=== PATIENT | female | born 1975 | race Caucasian/White ===

== ENCOUNTER 2017-10-10 15:30 | Emergency (ER) | payer OTHER, SELFPAY ==
[2017-10-10] MEDS ORDERED: TETANUS & DIPHTHERIA TOX,ADULT 0.5 ML VIAL ONE (16:22)
[2017-10-10] MEDS ORDERED: IBUPROFEN 200 MG TAB PO ONE (16:22)
[2017-10-10] MEDS ORDERED: IBUPROFEN 400 MG TAB ONE (16:22)
--- NOTE | 2017-10-10 16:46 | RAD REPORT ---
EXAM DESCRIPTION: RAD - Ankle Left 3 View - 10/10/2017 4:27 pm COMPARISON: None. FINDINGS: No fracture, dislocation or periosteal reaction. Joint effusions suspected along the tibio talar joint space. No joint space narrowing. No soft tissue abnormality. IMPRESSION: Joint effusion suspected but no acute bone process identifiable. Soft tissues are mildly prominent.
--- NOTE | 2017-10-10 16:50 | ER ---
Nurse's Notes [facility] Name: Herbie Arroyo Age: 42 yrs Sex: Female : 1975 Arrival Date: 10/10/2017 Time: 15:33 Bed 26 Private MD: Diagnosis: Sprain of ankle Presentation: 10/10 15:44 Presenting complaint: Patient states: L ankle pain after tripping yesterday. Pt was ss ambulatory with slight limp to triage. Transition of care: patient was not received from another setting of care. Onset of symptoms was October 09, 2017. Care prior to arrival: None. 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 tw2 Historical: - Allergies: 15:46 Levaquin; ss - Home Meds: 15:46 None [Active]; ss - PMHx: 15:46 ocd; Anxiety; ss - PSHx: 15:46 Tubal ligation; Cholecystectomy; ss - Immunization history:: Adult Immunizations unknown. - Social history:: Smoking status: Patient uses tobacco products, smokes one-half pack cigarettes per day. Screenin:52 Abuse screen: Denies threats or abuse. Nutritional screening: No deficits noted. tw2 Tuberculosis screening: No symptoms or risk factors identified. Fall Risk None identified. Assessment: 15:51 General: Appears in no apparent distress. slender, well groomed, Behavior is calm, tw2 cooperative, appropriate for age. Pain: Complains of pain in lateral side of left heel and left lateral malleolus. Neuro: Level of Consciousness is awake, alert, obeys commands, Oriented to person, place, time, situation. Cardiovascular: Denies chest pain, shortness of breath, Capillary refill < 3 seconds Patient's skin is warm and dry. Respiratory: Airway is patent Respiratory effort is even, unlabored, Respiratory pattern is regular, symmetrical. GI: No signs and/or symptoms were reported involving the gastrointestinal system. Abdomen is flat. : No signs and/or symptoms were reported regarding the genitourinary system. EENT: No signs and/or symptoms were reported regarding the EENT system. Derm: No signs and/or symptoms reported regarding the dermatologic system. Musculoskeletal: Circulation, motion, and sensation intact. Range of motion: intact in all extremities, Reports pain in lateral side of left heel and left lateral malleolus. 16:58 Reassessment: Patient appears in no apparent distress at this time. No changes from tw2 previously documented assessment. Patient and/or family updated on plan of care and expected duration. Pain level reassessed. Patient is alert, oriented x 3, equal unlabored respirations, skin warm/dry/pink. Vital Signs: 15:46 BP 123 / 98; Pulse 82; Resp 15; Temp 98.7(TE); Pulse Ox 98% on R/A; Weight 55.34 kg; ss Height 5 ft. 7 in. (170.18 cm); Pain 6/10; 15:46 Body Mass Index 19.11 (55.34 kg, 170.18 cm) ED Course: 15:33 Patient arrived in ED. as 15:40 Tatiana Coffman NP is PHCP. rh1 15:40 Arie Beebe MD is Attending Physician. rh1 15:45 Triage completed. ss 15:46 Arm band placed on right wrist. ss 15:50 Trish Zhang, MICHAEL is Primary Nurse. tw2 15:52 Bed in low position. Call light in reach. Pulse ox on. NIBP on. tw2 15:53 No provider procedures requiring assistance completed. tw2 16:26 X-ray completed. Portable x-ray completed in exam room. Patient tolerated procedure ag1 well. 16:49 David Wallace MD is Referral Physician. rh1 16:58 Patient did not have IV access during this emergency room visit. 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 Exp: tw2 11/28/2019. Lot #: [id number]. } Route: IM; Site: right deltoid; 16:43 Follow up: Response: No adverse reaction tw2 Outcome: 16:49 Discharge ordered by . rh1 16:58 Discharged to home ambulatory, with crutches, with family. tw2 16:58 Condition: stable 16:58 Discharge instructions given to patient, family, Instructed on discharge instructions, follow up and referral plans. safety practices, crutch walking, Demonstrated understanding of instructions, follow-up care, crutch walking. 16:59 Patient left the ED. tw2 Signatures: Enedina Avery Shelby, MICHAEL RN Meka Fields ag1 Tatiana Coffman NP INDUSTRIAL HIRE SALES ASSISTANT 1 Trish Zhang RN RN tw2
--- NOTE | 2017-10-10 16:50 | EDPHYS ---
Physician Documentation [facility] Name: Herbie Arroyo Age: 42 yrs Sex: Female : 1975 Arrival Date: 10/10/2017 Time: 15:33 Bed 26 Private MD: ED Physician Arie Beebe HPI: 10/10 15:54 This 42 yrs old Female presents to ER via Ambulatory with complaints of Ankle rh1 Injury. 15:54 The patient presents with decreased range of motion, pain, that is acute, swelling, rh1 tenderness. The complaints affect the left ankle. Onset: The symptoms/episode began/occurred today. Context: The problem was sustained at home, resulted from a mis-step by the patient, The mechanism of injury involved inversion of the affected ankle. The patient can partially bear weight on the affected extremity. the patient is able to ambulate, with moderate difficulty. Associated signs and symptoms: Pertinent positives: swelling, Pertinent negatives: numbness, tingling, weakness. Modifying factors: The symptoms are alleviated by elevation of extremity, the symptoms are aggravated by weight bearing, movement. Severity of symptoms: At their worst the symptoms were moderate, in the emergency department the symptoms are unchanged. The patient has not experienced similar symptoms in the past. The patient has not recently seen a physician. Pt. reports she was walking, tripped and fell, and rolled left ankle. Hit right knee, with small abrasion. Denies any other injuries.. 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 tw2 Historical: - Allergies: 15:46 Levaquin; ss - Home Meds: 15:46 None [Active]; ss - PMHx: 15:46 ocd; Anxiety; ss - PSHx: 15:46 Tubal ligation; Cholecystectomy; ss - Immunization history:: Adult Immunizations unknown. - Social history:: Smoking status: Patient uses tobacco products, smokes one-half pack cigarettes per day. ROS: 15:54 Constitutional: Negative for fever rh1 15:54 Abdomen/GI: Negative for nausea and vomiting. 15:54 Back: Negative for pain at rest, pain with movement. 15:54 MS/extremity: Positive for abrasion, decreased range of motion, pain, swelling, tenderness, Negative for deformity, paresthesias. 15:54 Skin: Positive for abrasion(s), of the right knee and anterior aspect of right ankle, Negative for cellulitis. 15:54 Neuro: Negative for numbness, tingling, weakness. 15:54 All other systems are negative. Exam: 15:54 Constitutional: This is a well developed, well nourished patient who is awake, alert, rh1 and in no acute distress. Head/Face: Normocephalic, atraumatic. Neck: Trachea midline, and no cervical lymphadenopathy. Supple, full range of motion without nuchal rigidity. No Meningismus. Cardiovascular: Regular rate and rhythm with a normal S1 and S2. No gallops, murmurs, or rubs. No JVD. No pulse deficits. Respiratory: Lungs have equal breath sounds bilaterally, clear to auscultation. No rales, rhonchi or wheezes noted. No increased work of breathing. Abdomen/GI: Soft, non-tender, with normal bowel sounds. No distension. No guarding or rebound. No evidence of tenderness throughout. Back: No spinal tenderness. No costovertebral tenderness. Full range of motion. 15:54 Musculoskeletal/extremity: Extremities: grossly normal except: noted in the left lateral malleolus: pain, swelling, tenderness, no talar tenderness, no calcaneal tenderness, no pain at 5th metatarsal, There is no evidence of deformity, erythema, ROM: full active range of motion, in the right arm, left arm, right leg, left hip and left knee, full passive range of motion, in the right arm, left arm, right leg, left hip and left knee, limited active range of motion, in the left lateral malleolus, limited passive range of motion, in the left lateral malleolus, related to pain, limited active range of motion due to pain, in the left lateral malleolus, limited passive range of motion due to pain, in the left lateral malleolus, Pulses: noted to be 2+ in the right radial artery, right posterior tibial artery, right dorsalis pedis artery, left radial artery, left posterior tibial artery and left dorsalis pedis artery, Perfusion: the extremity is pink, warm, with brisk capillary refill, toes at left foot, Sensation intact. 15:54 Skin: injury, abrasion(s), very small abrasion noted, of the anterior aspect of right ankle and right knee. 15:54 Neuro: Orientation: is normal, to person, place \T\ time. Mentation: is normal, lucid, able to follow commands, Motor: is normal, moves all fours, Sensation: is normal, no obvious gross deficits, numbness, is not appreciated, tingling, is not appreciated, Gait: antaglic. Vital Signs: 15:46 BP 123 / 98; Pulse 82; Resp 15; Temp 98.7(TE); Pulse Ox 98% on R/A; Weight 55.34 kg; ss Height 5 ft. 7 in. (170.18 cm); Pain 6/10; 15:46 Body Mass Index 19.11 (55.34 kg, 170.18 cm) ss MDM: 15:50 Patient medically screened. rh1 16:48 Data reviewed: vital signs, nurses notes, lab test result(s), radiologic studies, plain rh1 films, and as a result, I will discharge patient. Data interpreted: Pulse oximetry: on room air is 98 %. Interpretation: normal. Counseling: I had a detailed discussion with the patient and/or guardian regarding: the historical points, exam findings, and any diagnostic results supporting the discharge/admit diagnosis, lab results, radiology results, the need for outpatient follow up, a orthopedic surgeon, to return to the emergency department if symptoms worsen or persist or if there are any questions or concerns that arise at home. 10/10 16:56 Order name: Urine Dipstick--Ancillary (enter results) 10/10 16:56 Order name: Urine --Ancillary (enter results) 10/10 15:54 Order name: XRAY Ankle LEFT 3 view [facility] 10/10 16:47 Order name: RAD; Complete Time: 16:48 EDMS 10/10 15:54 Order name: Urine Dipstick-Ancillary (obtain specimen); Complete Time: 16:07 [facility] 10/10 15:54 Order name: Urine Test (obtain specimen); Complete Time: 16:07 [facility] 10/10 16:07 Order name: Ice pack; Complete Time: 16:07 tw2 10/10 16:35 Order name: Crutches; Complete Time: 16:36 [facility] 10/10 16:50 Order name: Terrell Wrap; Complete Time: 16:50 tw2 Administered Medications: 16:07 Drug: Motrin 600 mg Route: PO; tw2 16:43 Follow up: Response: No adverse reaction tw2 16:07 Drug: Tetanus-Diphtheria Toxoid Adult 0.5 ml {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 Exp: tw11/28/2019. Lot #: [id number]. } Route: IM; Site: right deltoid; 16:43 Follow up: Response: No adverse reaction tw2 Disposition: 17:54 Co-signature as Attending Physician, Arie Beebe MD. rn Disposition: 10/10/17 16:49 Discharged to Home. Impression: Sprain of ankle. - Condition is Stable. - Discharge Instructions: Elastic Bandage and RICE, Ankle Sprain, Cast or Splint Care. - Medication Reconciliation Form, Thank You Letter, Antibiotic Education, Prescription Opioid Use, Work release form form. - Follow up: David Wallace MD; When: 1 - 2 days; Reason: Further diagnostic work-up, Recheck today's complaints, Continuance of care. Follow up: Emergency Department; When: As needed; Reason: Fever > 102 F, If symptoms return, Trouble breathing, Worsening of condition. - Problem is new. - Symptoms have improved. Signatures: Dispatcher [employer] EDMS Arie Beebe MD MD rn Smirch, Shelby, RN RN ss Jones, Rachel, NP COMMUNITY RECREATION PROGRAMMER rh1 Trish Zhang RN RN tw2 Corrections: (The following items were deleted from the chart) 16:30 15:54 Musculoskeletal/extremity: Extremities: grossly normal except: noted in the left rh1 lateral malleolus: pain, swelling, tenderness, There is no evidence of deformity, erythema, ROM: full active range of motion, in the right arm, left arm, right leg, left hip and left knee, full passive range of motion, in the right arm, left arm, right leg, left hip and left knee, limited active range of motion, in the left lateral malleolus, limited passive range of motion, in the left lateral malleolus, related to pain, limited active range of motion due to pain, in the left lateral malleolus, limited passive range of motion due to pain, in the left lateral malleolus, Pulses: noted to be 2+ in the right radial artery, right posterior tibial artery, right dorsalis pedis artery, left radial artery, left posterior tibial artery and left dorsalis pedis artery, Perfusion: the extremity is pink, warm, with brisk capillary refill, toes at left foot, Sensation intact. rh1 16:50 16:35 Splint - Ankle: Aircast ordered. 1 tw2
[2017-10-10 17:05] LABS: Urine Blood 3+ (NEG); Urine Glucose NEGATIVE (NEG); Urine Protein NEGATIVE (NEG); Urine pH 5.5 (5.0-7.0)
== END 2017-10-10 16:59 | disposition home or self-care (01) ==
LOC: ER 15:30
DX: S93.402A Sprain of unspecified ligament of left ankle, initial encounter (principal); W01.0XXA Fall on same level from slipping, tripping and stumbling without subsequent striking against object, initial encounter; Y93.01 Activity, walking, marching and hiking; Y92.009 Unspecified place in unspecified non-institutional (private) residence as the place of occurrence of the external cause; Z23 Encounter for immunization; Z88.3 Allergy status to other anti-infective agents; F17.210 Nicotine dependence, cigarettes, uncomplicated
CPT/HCPCS: 81003; 81025; 90714; 99283